=== PATIENT | male | born 1985 | race Caucasian/White ===

== ENCOUNTER → 2017-01-16 | Outpatient (CLI) | payer BC ==
[2017-01-16 08:40] LABS: BASOPHILS # (AUTO) 0.04 10*3/UL; BASOPHILS % (AUTO) 0.7 % (0-1); EOSINOPHILS # (AUTO) 0.38 10*3/UL; EOSINOPHILS % (AUTO) 6.3 % (0-8); HEMATOCRIT 46.4 % (42.0-52.0); HEMOGLOBIN 16.5 g/dL (14.0-18.0); LYMPHOCYTES # (AUTO) 2.19 10*3/uL; MEAN CORPUSCULAR HEMOGLOBIN 31.5 PG (27-31); MEAN CORPUSCULAR HGB CONC 35.6 g/dL (33-37); MEAN CORPUSCULAR VOLUME 88.5 FL (80-90); MEAN PLATELET VOLUME 10.3 FL (7.4-12.2); MONOCYTES # (AUTO) 0.49 10*3/UL (0.3-0.8); MONOCYTES % (AUTO) 8.1 % (5-15); NEUTROPHILS # (AUTO) 2.93 10*3/UL; NEUTROPHILS % (AUTO) 48.4 % (50-80); RED BLOOD COUNT 5.24 10^6/uL (4.70-6.10)
[2017-01-16 08:42] LABS: PLATELET MORPHOLOGY COMMENT NORMAL MORPHOLOGY (NORM); RBC MORPHOLOGY COMMENT NORMAL MORPHOLOGY (NORM); WBC MORPHOLOGY COMMENT NORMAL MORPHOLOGY (NORM)
[2017-01-16 09:19] LABS: BLOOD UREA NITROGEN 14 mg/dL (7-22); BUN/CREATININE RATIO 12.72 (6-20); CALCIUM 9.1 mg/dL (8.7-10.7); EST GLOMERULAR FILTRATION > 60 (>60 ml/min/1.73m(2)); SERUM ALBUMIN 4.3 g/dL (3.5-4.8)
[2017-01-16 09:20] LABS: CHOL/HDL RATIO 5.54 RATIO (0-4.0); LDL CHOLESTEROL,CALCULATED 119.4 mg/dL
[2017-01-20 11:11] LABS: FACTOR V MUTATION ANALYSIS Negative (Negative)
== END ==
LOC: LAB 08:11
PROVIDERS: ATTEND Physician Assistant Medical
DX: Z00.01 Encounter for general adult medical examination with abnormal findings (principal); N62 Hypertrophy of breast; Z83.2 Family history of diseases of the blood and blood-forming organs and certain disorders involving the immune mechanism
CPT/HCPCS: 36415; 80053; 80061; 81241; 84403; 84443; 85025

== ENCOUNTER → 2017-03-21 | Outpatient (CLI) | payer BC ==
[2017-03-21 09:17] LABS: FREE T4 (FREE THYROXINE) 0.82 ng/dL (0.93-1.71)
== END ==
LOC: LAB 08:03
PROVIDERS: ATTEND Student in an Organized Health Care Education/Training Program
DX: N62 Hypertrophy of breast (principal)
CPT/HCPCS: 36415; 82670; 83001; 84146; 84439; 84443